=== PATIENT | female | born 1935 | race Caucasian/White ===

== ENCOUNTER 2022-07-08 23:43 | Outpatient (CLI) | payer OTHER, SELFPAY | END 2022-07-08 23:44 | disposition home or self-care (01) | LOC: AMB 07-09 11:30 | PROVIDERS: Visit Provider Family Medicine | DX: R07.89 Other chest pain (principal); R06.09 Other forms of dyspnea | CPT/HCPCS: A0425; A0427 ==

== ENCOUNTER 2022-07-09 00:18 | Emergency (ER) | payer MEDICARE, SELFPAY ==
[2022-07-09] VITALS (17 sets, daily range): BP systolic 108–156; BP diastolic 53–96; PULSE 70–89; RESP 18–20; TEMP 36.4; O2SAT 87–98; BMI 31.2
--- NOTE | 2022-07-09 00:21 | CRLHL7_ITS ---
For Patients: As a result of the Century Cures Act, medical imaging exams and procedure reports are released immediately into your electronic medical record. You may view this report before your referring provider. If you have questions, please contact your health care provider. INDICATION: Shortness of breath. TECHNIQUE: Chest 1 view. COMPARISON: 07/06/2015. FINDINGS: Cardiovascular and mediastinum: Heart size and vasculature are normal in caliber and appearance. Left dual-chamber cardiac pacer. Lungs and pleural spaces: Lungs are clear. No sign of infiltrate or mass. No sign of pleural effusion. No pneumothorax. Bones and soft tissues: Left shoulder prosthesis. IMPRESSION: No acute cardiopulmonary abnormality. Dictated by Sinan Suresh MD @ 07/09/2022 1:41:47 AM (Electronically Signed)
--- NOTE | 2022-07-09 00:35 | ED_ITS ---
HPI - Chest Pain General Time Seen by Provider: 00:35 Date Seen: 07/09/22 Chief Complaint: Chest Pain Stated Complaint: Chest Pain Time Seen by Provider: 07/09/22 00:19 Source: patient Mode of arrival: EMS Limitations: no limitations History of Present Illness HPI narrative: Patient is an 86-year-old female presents here for evaluation of chest pain. This started approximately 10:00 p.m. tonight, is been ongoing for 2 hours, she describes in her anterior chest region with some radiation to her neck. She tells me it is her reflux. EMS gave her some aspirin nitroglycerin with no change in her pain pattern. She did not take anything at home. I find her in the room, with her eyes closed and her sleeping, she tells me she was not sleeping. No history of coughing, fevers chills, she ate normally today. The pain does not radiate where describes her pain currently is 10/10. Although she seems fairly comfortable. Past history of aortic enlargement, pacemaker AICD, history of ventricular tachycardia, history of anxiety, history of hypertension, history hyperparathyroidism, history of intracranial meningioma, history of tricuspid valve insufficiency, history of mitral valve insufficiency, history of spinal stenosis, history of distal neuropathy, history of mixed incontinence, history of hyperlipidemia, history of osteoporosis, History of appendectomy, cholecystectomy, femur fracture with internal fixation, cataract extraction, tubal ligation, MD complaint: chest pain and chest discomfort Onset (ago): hour(s) (2) Timing of current episode: constant Prior episodes: Yes Onset: during rest Pain location: substernal Pain radiation: neck Severity: severe Quality: burning Relieving factors: nothing Exacerbating factors: nothing Treatment prior to arrival: aspirin and nitroglycerin Risk Factors Coronary artery disease risk factors: smoking history and hypertension Thoracic aortic dissection risk factors: history of thoracic aortic aneurysm Related Data On Oral Contraceptives: No Home Medications Medication Instructions Recorded Confirmed famotidine 40 mg tablet 40 mg PO Q12H 07/09/22 07/09/22 furosemide 40 mg tablet 40 mg PO Q12H 07/09/22 07/09/22 gabapentin 300 mg capsule 300 mg PO Q12H 07/09/22 07/09/22 glipizide 2.5 mg tablet, extended 2.5 mg PO DAILY 07/09/22 07/09/22 release 24 hr losartan 50 mg tablet 50 mg PO DAILY 07/09/22 07/09/22 omeprazole 20 mg capsule,delayed 20 mg PO .Q12 07/09/22 07/09/22 release spironolactone 25 mg tablet 25 mg PO DAILY 07/09/22 07/09/22 Previous Rx's Medication Instructions Recorded omeprazole 20 mg capsule,delayed 20 mg PO BID #60 caps 07/09/22 release omeprazole magnesium 20 mg 20 mg PO BID #60 caps 07/09/22 capsule,delayed release (Acid Bindery Machine Setter/Set Up Operator (omeprazole)) Allergies Allergy/AdvReac Type Severity Reaction Status Date / Time atorvastatin Allergy Intermediate myalgia Verified 07/09/22 03:02 calcitonin Allergy Intermediate nose Verified 07/09/22 03:02 irritation estrogens, conjugated Allergy Intermediate itching Verified 07/09/22 03:02 hydralazine Allergy Intermediate dizziness Verified 07/09/22 03:02 lisinopril Allergy Intermediate cough Verified 07/09/22 03:02 mirtazapine Allergy Intermediate sedation Verified 07/09/22 03:02 pantoprazole Allergy Intermediate diarrhea Verified 07/09/22 03:02 simvastatin Allergy Intermediate myalgia Verified 07/09/22 03:02 tramadol Allergy Intermediate dizziness Verified 07/09/22 03:02 codeine Allergy Mild shaking Verified 07/09/22 03:02 metformin AdvReac Mild nausea Verified 07/09/22 03:02 Review of Systems Status of ROS Reports: 10 or more systems reviewed and unremarkable except as noted in History and below [facility] Medical History (Updated 07/09/22 @ 07:35 by Orville Hodge MD) Anemia Anxiety Aortic valve stenosis Ascending aorta dilatation Bilateral dry eyes Cardiac defibrillator in situ Carotid artery bruit Chronic low back pain Colon, diverticulosis Diabetes mellitus with nephropathy GERD (gastroesophageal reflux disease) Heart murmur Hiatal hernia Humerus shaft fracture Hyperlipidemia Hyperparathyroidism Hypertension Intracranial meningioma Lumbar degenerative disc disease Lumbar facet arthropathy Mitral valve insufficiency Mixed incontinence urge and stress Osteoporosis Primary osteoarthritis, left shoulder Rib fracture Sensorineural hearing loss of both ears Small vessel disease Spinal stenosis, lumbar region, without neurogenic claudication Tricuspid valve insufficiency Type 2 diabetes mellitus Ventricular tachycardia Vitamin A deficiency Surgical History (Updated 07/09/22 @ 03:23 by Marvin Peña RN) History of aortic valve replacement History of appendectomy History of cardiac defibrillator placement History of carpal tunnel release History of cataract surgery History of cholecystectomy History of tubal ligation S/P aortic valve replacement with bioprosthetic valve S/p reverse total shoulder arthroplasty Social History Smoking Status: Former smoker How often do you have a drink containing alcohol: never How often do you have six or more drinks on one occasion: Never AUDIT-C Alcohol total score: 0 Non-prescribed substance use: denies use Exam Narrative Exam Narrative: I find her sleeping in the room, with some audible wheezing. She wakes up, forming Pupils are equal round reactive to light, there is no scleral icterus, TMs are normal oropharynx normal, JVP is slightly elevated to 4 cm, with a positive HJR, no lymphadenopathy in her neck, her cranial nerves 3-12 are otherwise normal, her oropharynx is normal, neck is supple full range of motion, Chest shows some crackles in the bases bilaterally, with occasional wheezes, no signs or spiral oriana distress, no palpable tenderness over her chest, heart sounds no clicks murmurs or gallops, Her abdomen is soft and obese there is no guarding no by splenomegaly, scars from previous surgery are noted. Bowel sounds are normal. Extremities show mild 1 to 2+ pitting edema bilaterally, she moves her upper lower extremities normal, there is some venous stasis changes over lower extremities, neurologically she moves her extremities normally, proximal and distal muscle strength is normal, and her proprioception is normal. Const Vital Signs, click to edit/add: Vital Signs - 24 hr 07/09/22 00:26 07/09/22 00:42 07/09/22 01:02 Temperature 97.6 F Pulse Rate 83 85 Pulse Rate [Right Pulse Oximeter] 89 Respiratory Rate 20 Blood Pressure 147/69 H 140/59 H Blood Pressure [Right Upper Arm] 117/92 H Pulse Oximetry 93 92 87 L Oxygen Delivery Method Room Air Nasal Cannula Oxygen Flow Rate 2 07/09/22 01:22 07/09/22 01:42 07/09/22 02:22 Temperature Pulse Rate 81 80 Pulse Rate [Right Pulse Oximeter] Respiratory Rate Blood Pressure 141/60 H 140/65 H 146/62 H Blood Pressure [Right Upper Arm] Pulse Oximetry 95 95 Oxygen Delivery Method Nasal Cannula Nasal Cannula Nasal Cannula Oxygen Flow Rate 2 2 2 07/09/22 02:42 07/09/22 03:01 07/09/22 03:02 Temperature Pulse Rate 77 80 Pulse Rate [Right Pulse Oximeter] Respiratory Rate Blood Pressure 149/73 H 135/64 Blood Pressure [Right Upper Arm] Pulse Oximetry 97 95 96 Oxygen Delivery Method Nasal Cannula Nasal Cannula Oxygen Flow Rate 2 2 07/09/22 03:22 07/09/22 03:42 07/09/22 04:02 Temperature Pulse Rate 75 72 74 Pulse Rate [Right Pulse Oximeter] Respiratory Rate Blood Pressure 134/62 120/59 L 114/55 L Blood Pressure [Right Upper Arm] Pulse Oximetry 96 95 96 Oxygen Delivery Method Oxygen Flow Rate 07/09/22 04:22 07/09/22 04:42 07/09/22 05:02 Temperature Pulse Rate 70 80 72 Pulse Rate [Right Pulse Oximeter] Respiratory Rate Blood Pressure 109/53 L 108/96 H 120/54 L Blood Pressure [Right Upper Arm] Pulse Oximetry 96 98 96 Oxygen Delivery Method Oxygen Flow Rate 07/09/22 06:02 Temperature Pulse Rate 80 Pulse Rate [Right Pulse Oximeter] Respiratory Rate Blood Pressure 122/64 Blood Pressure [Right Upper Arm] Pulse Oximetry 95 Oxygen Delivery Method Nasal Cannula Oxygen Flow Rate 1 Documenting provider has reviewed patient's vital signs: yes Common normals: no apparent distress, average body habitus, oriented x3, no limitations, alert and well nourished Neuro Common normals: oriented x3 Sensorium/orientation: alert Course Course Hospital Course: Troponins are negative, D-dimer was age adjusted normal also. His x-ray showed no acute findings, given the history of the aortic dilatation I did do a chest abdomen pelvis CT, for aortic dissection, this was negative, no evidence of pulmonary embolism seen also. Her pain has improved while she has been here, with a combination of a GI cocktail morphine, and Protonix. Given her past history, I think it is important that we at least get 3 troponins on her. I will get another troponin ordered for 7:00 a.m. this morning, her repeat EKG showed no acute findings also. Reevaluation(s) Reevaluation #1: Third troponin was negative, her EKG shows no acute changes, with stability from previous EKGs, rate is 82, she does sound a little bit cracked clear bronchial, I wonder if her reflux is kicking up again, she does have a history of this. She is already on for Pepcid and omeprazole, decreasing her omeprazole to 40 mg a day would be reasonable, she tells me she just underwent some heart tests down in [place], with the [facility], I do not have access to these, would like her to follow up with her primary care physician as she does have a history of heart issues. She was agreeable to this. She tells me her pain is markedly improved but still has a little bit of discomfort, overall with her troponins being normal, her CT scan showing no evidence of issues. I think it be reasonable let her go home. Time: 07:36 Vital Signs Vital signs: Initial Vital Signs Temperature 97.6 F 07/09/22 00:26 Temperature Source Temporal Artery Scan 07/09/22 00:26 Pulse Rate 89 07/09/22 00:26 Respiratory Rate 20 07/09/22 00:26 Respiratory Effort Spontaneous 07/09/22 00:26 Respiratory Depth Normal 07/09/22 00:26 Respiratory Pattern 07/09/22 00:26 Blood Pressure 117/92 H 07/09/22 00:26 Blood Pressure Mean 100 07/09/22 00:26 Blood Pressure Position Supine 07/09/22 00:26 Pulse Oximetry 93 07/09/22 00:26 Oxygen Delivery Method 07/09/22 00:26 Vital Signs Temperature 97.6 F 07/09/22 00:26 Pulse Rate 89 07/09/22 00:26 Respiratory Rate 20 07/09/22 00:26 Blood Pressure 117/92 H 07/09/22 00:26 Pulse Oximetry 93 07/09/22 00:26 Oxygen Delivery Method 07/09/22 00:26 Temperature 97.6 F 07/09/22 00:26 Pulse Rate 80 07/09/22 06:02 Respiratory Rate 20 07/09/22 00:26 Blood Pressure 122/64 07/09/22 06:02 Pulse Oximetry 95 07/09/22 06:02 Oxygen Delivery Method 07/09/22 06:02 Oxygen Flow Rate 1 07/09/22 06:02 MDM - Chest Pain MDM Narrative Medical decision making narrative: During the evaluation of this patient I considered multiple differential diagnosis is. The life-threatening differential diagnosis include coronary disease/MA, pulmonary embolism, pneumothorax, pneumonia, and aortic dissection. Other differential diagnosis included but were not limited to pericarditis, myocarditis, chest wall pain, GERD, esophageal rupture, rib fracture contusion, pleurisy, as well as other etiologies. Medical Records Data Attestation: I reviewed the patient's medical records. Lab Data Attestation: I reviewed the patient's lab results. Labs: Lab Results 07/09/22 07/09/22 07/09/22 Range/Units 00:30 00:33 00:33 WBC 7.12 (4.50-11.00) K/uL RBC 4.41 (4.00-5.20) m/uL Hgb 13.1 (12.0-16.0) gm/dL Hct 40.3 (33.0-51.0) % MCV 91 (80-100) fL MCH 30 (26-34) pg MCHC 33 (32-36) gm/dL RDW Coeff of Melissa 13.3 (11.5-15.5) % Plt Count 225 (140-440) K/uL Neut % (Auto) 74.6 H (42.0-72.0) % Lymph % (Auto) 15.6 L (20-44) % [place] % (Auto) 7.4 (0.0-11.0) % Eos % (Auto) 1.3 (0.0-7.0) % Baso % (Auto) 0.3 (0.0-3.0) % Neut # (Auto) 5.30 (1.7-7.0) K/uL Lymph # (Auto) 1.10 (0.90-2.90) K/uL [place] # (Auto) 0.50 (0.00-0.90) K/UL Eos # (Auto) 0.09 (0.00-0.50) K/uL Baso # (Auto) 0.02 (0.00-0.30) K/uL Abs Immat Gran (auto) 0.06 (0.00-0.30) K/uL INR 0.92 (0.91-1.10) APTT 29 (23-33) Seconds D-Dimer Quant (PE/DVT) 0.55 H (0.00-0.50) ug/ml Sodium (135-149) mmol/L Potassium (3.6-5.1) mmol/L Chloride (96-114) mmol/L Carbon Dioxide (20-32) mmol/L BUN (7-30) mg/dL Creatinine (0.5-1.5) mg/dL Estimated Creat Clear Estimated GFR ml/min Glucose (60-115) mg/dL Calcium (8.4-10.6) mg/dL NT-Pro-B Natriuret Pep (0-450) PG/mL SARS-CoV-2 (PCR) Negative SARS-CoV-2 (Negative) Influenza Type A (PCR) Negative PCR FLU A (Negative) Influenza Type B (PCR) Negative PCR FLU B (Negative) RSV (PCR) Negative PCR RSV (Negative) POC Troponin I (0.01-0.04) ng/ml 07/09/22 07/09/22 07/09/22 Range/Units 00:33 00:35 02:40 WBC (4.50-11.00) K/uL RBC (4.00-5.20) m/uL Hgb (12.0-16.0) gm/dL Hct (33.0-51.0) % MCV (80-100) fL MCH (26-34) pg MCHC (32-36) gm/dL RDW Coeff of Melissa (11.5-15.5) % Plt Count (140-440) K/uL Neut % (Auto) (42.0-72.0) % Lymph % (Auto) (20-44) % [place] % (Auto) (0.0-11.0) % Eos % (Auto) (0.0-7.0) % Baso % (Auto) (0.0-3.0) % Neut # (Auto) (1.7-7.0) K/uL Lymph # (Auto) (0.90-2.90) K/uL [place] # (Auto) (0.00-0.90) K/UL Eos # (Auto) (0.00-0.50) K/uL Baso # (Auto) (0.00-0.30) K/uL Abs Immat Gran (auto) (0.00-0.30) K/uL INR (0.91-1.10) APTT (23-33) Seconds D-Dimer Quant (PE/DVT) (0.00-0.50) ug/ml Sodium 136 (135-149) mmol/L Potassium 3.5 L (3.6-5.1) mmol/L Chloride 97 (96-114) mmol/L Carbon Dioxide 27 (20-32) mmol/L BUN 21 (7-30) mg/dL Creatinine 0.6 (0.5-1.5) mg/dL Estimated Creat Clear 30.47 Estimated GFR 87 ml/min Glucose 181 H (60-115) mg/dL Calcium 8.6 (8.4-10.6) mg/dL NT-Pro-B Natriuret Pep 205 (0-450) PG/mL SARS-CoV-2 (PCR) (Negative) Influenza Type A (PCR) (Negative) Influenza Type B (PCR) (Negative) RSV (PCR) (Negative) POC Troponin I 0.02 0.02 (0.01-0.04) ng/ml 07/09/22 Range/Units 06:52 WBC (4.50-11.00) K/uL RBC (4.00-5.20) m/uL Hgb (12.0-16.0) gm/dL Hct (33.0-51.0) % MCV (80-100) fL MCH (26-34) pg MCHC (32-36) gm/dL RDW Coeff of Melissa (11.5-15.5) % Plt Count (140-440) K/uL Neut % (Auto) (42.0-72.0) % Lymph % (Auto) (20-44) % [place] % (Auto) (0.0-11.0) % Eos % (Auto) (0.0-7.0) % Baso % (Auto) (0.0-3.0) % Neut # (Auto) (1.7-7.0) K/uL Lymph # (Auto) (0.90-2.90) K/uL [place] # (Auto) (0.00-0.90) K/UL Eos # (Auto) (0.00-0.50) K/uL Baso # (Auto) (0.00-0.30) K/uL Abs Immat Gran (auto) (0.00-0.30) K/uL INR (0.91-1.10) APTT (23-33) Seconds D-Dimer Quant (PE/DVT) (0.00-0.50) ug/ml Sodium (135-149) mmol/L Potassium (3.6-5.1) mmol/L Chloride (96-114) mmol/L Carbon Dioxide (20-32) mmol/L BUN (7-30) mg/dL Creatinine (0.5-1.5) mg/dL Estimated Creat Clear Estimated GFR ml/min Glucose (60-115) mg/dL Calcium (8.4-10.6) mg/dL NT-Pro-B Natriuret Pep (0-450) PG/mL SARS-CoV-2 (PCR) (Negative) Influenza Type A (PCR) (Negative) Influenza Type B (PCR) (Negative) RSV (PCR) (Negative) POC Troponin I 0.00 L (0.01-0.04) ng/ml Imaging Data CT scan - chest: My impression: No evidence of dissection, Radiologist's impression: atient: [facility] Facility:?[facility] Patient ID:?[id number] Site Patient ID:?[id number]. Site :?[id number] Study:?CT Chest/Abd/Pelvis with 95cc [id number] Aortic Diss-07/09/2022 2:29:58 AM Ordering Physician:Randal Jacinto Final Report: INDICATION: Chest and abdominal pain. Possible aortic dissection. COMPARISON: CT of the abdomen and pelvis with contrast from 05/17/2015 TECHNIQUE: Initial examination is a spiral CT of the chest obtained without contrast to produce 3 mill[address] sections[address] angiography of the chest, abdomen, and pelvis was performed with the uneventful intravenous administration of 95 cc of Isovue 370 while 1.5 mm thick axial sections were obtained from above the lungs through the pubic symphysis. Please note that all CT scans at this facility use dose modulation, iterative reconstruction, and/or weight-based dosing when appropriate to reduce radiation dose to as low as reasonably achievable. FINDINGS: : The thoracic aorta is normal in caliber with no sign of dilatation or dissection. There is no sign of periaortic hematoma. In the chest, there is a satisfactory enhancement of the pulmonary arteries with no sign of pulmonary embolism. There is moderately increased AP chest diameter consistent with moderate hyperinflation from COPD. There is stable mild linear scarring in the posterior lung bases. There is no sign of mediastinal or hilar mass or adenopathy. There is no sign of supraclavicular or axillary mass or adenopathy. A TAVR is present. There is heavy calcification of the mitral valve annulus. Again seen is a left sided defibrillator with leads entering the left subclavian vein and terminating in the right atrium and right ventricle. There is mild left main and LAD coronary calcification. The heart is normal in size. There is age appropriate appearance of the ascending great vessels. The abdominal aorta is normal in caliber with no sign of aneurysmal dilatation or dissection. The celiac axis, SMA, solitary bilateral renal arteries, and JR are widely patent. There is no sign of periaortic hematoma. In the abdomen, the liver, spleen, and adrenals are normal in appearance. The pancreas is prominently atrophic. The kidneys are normal in appearance. The gallbladder is absent, consistent with cholecystectomy. There is stable moderate intrahepatic and extrahepatic biliary ductal dilatation with the common bile duct measuring up to 12 millimeters in caliber extending through the pancreatic head, consistent with post cholecystectomy status. There is no sign of retroperitoneal mass or adenopathy. Incidental note is again made of a moderate-sized diverticulum projecting superiorly from the 3rd portion of the duodenum. The stomach, the rest of the loops of small bowel, and right colon in the abdomen are normal in appearance. There is worsening of diverticulosis of the left colon extending from the splenic flexure through the descending colon, now severe, with no sign of d iverticulitis. In the pelvis, the appendix is nonvisualized, but there is no sign of an inflammatory process in the area of the appendix. There is stable severe sigmoid diverticulosis without evidence of diverticulitis. The loops of small bowel and rectum in the pelvis are otherwise normal in appearance. The uterus is atrophic and is otherwise normal in appearance. The adnexal regions are normal in appearance. The urinary bladder is normal in appearance. There is no sign of pelvic or inguinal mass or adenopathy. There is no sign of free fluid or free air in the abdomen or pelvis. Again seen is moderate scoliosis of the upper lumbar spine convex towards the left. There is stable appearance of the mild L1 and T11 compression fractures. Again seen are changes of ORIF for a right hip fracture with a femoral neck nail, interfragmentary screw, and lateral metallic sideplate. There are new findings of ORIF of an intertrochanteric fracture of the left hip with a new left femoral neck nail and femoral intramedullary marychuy. IMPRESSION: No sign of vascular abnormality to explain the patient`s chest or abdominal pain. Normal CT angiogram of the thoracic and abdominal aorta. CT of the chest shows continued moderate hyperinflation consistent with COPD. CT of the abdomen shows stable moderate intrahepatic and extrahepatic biliary ductal dilatation consistent with patient age and post cholecystectomy status. Worsening of left colonic diverticulosis, now prominent. CT of the pelvis shows stable severe sigmoid diverticulosis with no sign of diverticulitis. Please note that all CT scans at this facility use dose modulation, iterative reconstruction, and/or weight-based dosing when appropriate to reduce radiation dose to as low as reasonably achievable. Dictated by Naveen Hoffmann MD @ 07/09/2022 3:16:24 AM ----- ADDENDUM ----- The impression should include the following sentence: No sign of pulmonary embolism. Dictated by Naveen Hoffmann MD @ Jul 09 2022 3:18AM (Electronic Signature) ECG Data Attestation: I personally reviewed and interpreted this ECG as follows: ECG interpretation date: 07/09/22 ECG interpretation time: 00:42 Prior ECG tracings: available for review Interpretation: EKG shows sinus rhythm with sinus arrhythmia, ventricular rate is 85, QRS is normal, QTC is normal, with a normal WI interval. When I compare this to old EKG from 2018 there is no appreciable change, repeat EKG done at 3:11 a.m. shows normal sinus rhythm, no acute ST wave changes, no really change from previous EKG, no acute Discharge Plan Discharge Clinical Impression: Chest pain, Reflux esophagitis Patient Disposition: Home w/ Parent or Adult Condition: Improved Instructions: Chest Pain (DC), GERD (Gastroesophageal Reflux Disease) (DC), Noncardiac Chest Pain (ED), Esophagitis (ED) Additional Instructions: Home rest we will set you up for an outpatient Lexiscan. I would suggest we increase her omeprazole to 40 mg a day. I suspect that this is reflux, as all your cardiiac tests were negative. I would suggest he follow up with her primary care physician, as I understand that you have recently had heart tests, I do not have access to these as these are in the [place] system. Prescriptions: New omeprazole 20 mg capsule,delayed release(DR/EC) 20 mg PO BID Qty: 60 2RF Rx Instructions: Patient already takes. This is an increase omeprazole magnesium [Acid Bindery Machine Setter/Set Up Operator (omeprazole)] 20 mg capsule,delayed release(DR/EC) 20 mg PO BID Qty: 60 2RF No Action famotidine 40 mg tablet 40 mg PO Q12H Label Comments: TAKE 1 TABLET BY MOUTH TWICE A DAY furosemide 40 mg tablet 40 mg PO Q12H Label Comments: TAKE 1.5 TABLETS (60MG) BY MOUTH 2 TIMES A DAY. gabapentin 300 mg capsule 300 mg PO Q12H Label Comments: TAKE 1 CAPSULE (300 MG TOTAL) BY MOUTH 2 TIMES A DAY. glipizide 2.5 mg tablet extended release 24hr 2.5 mg PO DAILY Label Comments: TAKE 1 TABLET BY MOUTH EVERY DAY losartan 50 mg tablet 50 mg PO DAILY Label Comments: TAKE 1 TABLET BY MOUTH EVERY DAY omeprazole 20 mg capsule,delayed release(DR/EC) 20 mg PO .Q12 Label Comments: TAKE 1 CAPSULE BY MOUTH 2 TIMES A DAY BEFORE BREAKFAST AND DINNER. spironolactone 25 mg tablet 25 mg PO DAILY Label Comments: TAKE 1 TABLET BY MOUTH EVERY DAY WITH BREAKFAST Follow Up/Referrals: Provider,Not a Local [Primary Care Provider] - Ken Cabrera MD [Referring] - Stand Alone Forms: [employer] Info Instructions
[2022-07-09 00:43] LABS: Basophils Absolute Auto 0.02 K/uL (0.00-0.30); Basophils Percent Auto 0.3 % (0.0-3.0); Eosinophils Absolute Auto 0.09 K/uL (0.00-0.50); Eosinophils Percent Auto 1.3 % (0.0-7.0); Hematocrit 40.3 % (33.0-51.0); Hemoglobin* 13.1 gm/dL (12.0-16.0); Immature Granulocytes Abs Auto 0.06 K/uL (0.00-0.30); Lymphocytes Percent Auto 15.6 % (20-44); Mean Corpuscular HGB Conc 33 gm/dL (32-36); Mean Corpuscular Hemoglobin 30 pg (26-34); Mean Corpuscular Volume 91 fL (80-100); Monocytes Percent Auto 7.4 % (0.0-11.0); Neutrophils Percent Auto 74.6 % (42.0-72.0); Platelet Count* 225 K/uL (140-440); RDW Coefficient of Variation % 13.3 % (11.5-15.5); Red Blood Count 4.41 m/uL (4.00-5.20); White Blood Count* 7.12 K/uL (4.50-11.00)
[2022-07-09 00:47] LABS: Slide Review Reflex No
[2022-07-09 00:56] LABS: Chloride* 97 mmol/L (96-114); Potassium* 3.5 mmol/L (3.6-5.1); Sodium* 136 mmol/L (135-149)
[2022-07-09 00:58] LABS: INR 0.92 (0.91-1.10); Prothrombin Time 12.8 Seconds
[2022-07-09 00:59] LABS: Carbon Dioxide* 27 mmol/L (20-32); Creatinine* 0.6 mg/dL (0.5-1.5); Est. Creatinine Clearance* 30.47; Estimated Glomerular Filt Rate 87 ml/min; Partial Thromboplastin Time* 29 Seconds (23-33)
[2022-07-09 01:00] LABS: Blood Urea Nitrogen* 21 mg/dL (7-30); Calcium* 8.6 mg/dL (8.4-10.6); Glucose* 181 mg/dL (60-115)
[2022-07-09 01:01] LABS: D Dimer Quantitative* 0.55 ug/ml (0.00-0.50)
[2022-07-09 01:08] LABS: NT Pro B Type NatriureticPept* 205 PG/mL (0-450)
[2022-07-09] MEDS: IPRAT-ALBUT 0.5-2.5 MG/3 ML NEB 1 NEB IH (01:10)
[2022-07-09] MEDS: GI COCKTAIL (VISC LIDO/ANTACID) 30 ML PO (01:10)
[2022-07-09 01:20] LABS: PCR FLU A Negative PCR FLU A (Negative); PCR FLU B Negative PCR FLU B (Negative); PCR RSV Negative PCR RSV (Negative)
[2022-07-09 01:24] LABS: Troponin, Point-of-Care* 0.02 ng/ml (0.01-0.04)
--- NOTE | 2022-07-09 01:25 | ED.NURSE ---
pt denies relief from gi cocktail- mD orozco updated.
[2022-07-09] MEDS: MORPHINE 2 MG/ML inj IVP (01:29)
--- NOTE | 2022-07-09 01:32 | CRLHL7_ITS ---
For Patients: As a result of the Century Cures Act, medical imaging exams and procedure reports are released immediately into your electronic medical record. You may view this report before your referring provider. If you have questions, please contact your health care provider. This noncontrast CT of the chest is interpreted as part of the accompanying CT angiogram of the chest, abdomen, and pelvis. Please note that all CT scans at this facility use dose modulation, iterative reconstruction, and/or weight-based dosing when appropriate to reduce radiation dose to as low as reasonably achievable. Dictated by Naveen Hoffmann MD @ 07/09/2022 3:17:26 AM (Electronically Signed)
--- NOTE | 2022-07-09 01:50 | ED.NURSE ---
pt denies any relief from GI cocktail - MD updated.
[2022-07-09 02:01] LABS: SARS PCR* Negative SARS-CoV-2 (Negative)
[2022-07-09] MEDS: 0.9 % SODIUM CHLORIDE 500 ML 500 ML IV (02:10)
--- NOTE | 2022-07-09 02:15 | ED.NURSE ---
pt states some relief from morphine, pt states pain mostly with coughing, MD updated.
[2022-07-09] MEDS: PANTOPRAZOLE SODIUM 40 MG INJ IVP (02:34)
[2022-07-09 02:55] LABS: Troponin, Point-of-Care* 0.02 ng/ml (0.01-0.04)
--- NOTE | 2022-07-09 03:08 | ED.NURSE ---
phone update to sawyer Marrufo dtr/codey [phone]
--- NOTE | 2022-07-09 03:58 | ED.NURSE ---
patient states pain feels better unless coughing, pt denies any need for additional prn morphine at this time, pt agrees to use call light if pain changes.
[2022-07-09] MEDS: MORPHINE 4 MG/ML INJ 2 MG IVP (05:59)
--- NOTE | 2022-07-09 07:44 | PC.NURSE ---
spoke to via phone, he will be coming shortly and bringing her clothes
== END 2022-07-09 08:45 | disposition home or self-care (01) ==
PROVIDERS: Emergency Provider Family Medicine
DX: K21.00 Gastro-esophageal reflux disease with esophagitis, without bleeding (principal); Z13.0 Encounter for screening for diseases of the blood and blood-forming organs and certain disorders involving the immune mechanism
CPT/HCPCS: 36415; 71045; 71270; 74177; 80048; 83880; 84484; 85025; 85379; 85610; 85730; 87502; 87634; 87635; 93005; 94640; 96374; 96375; 96376; 99285; A9270; C9113; J2270; J7120; Q9967

== ENCOUNTER 2023-02-21 03:22 | Outpatient (CLI) | payer MEDICARE, SELFPAY | END 2023-02-21 03:23 | disposition home or self-care (01) | LOC: AMB 14:41 | PROVIDERS: Visit Provider Family Medicine | DX: R07.89 Other chest pain (principal) | CPT/HCPCS: A0425; A0427 ==

== ENCOUNTER 2023-02-21 03:55 | Emergency (ER) | payer MEDICARE, SELFPAY ==
[2023-02-21] VITALS (8 sets, daily range): BP systolic 141–147; BP diastolic 60–63; PULSE 60–66; RESP 18; TEMP 36.3; O2SAT 87–95
--- NOTE | 2023-02-21 04:11 | CRLHL7_ITS ---
For Patients: As a result of the Century Cures Act, medical imaging exams and procedure reports are released immediately into your electronic medical record. You may view this report before your referring provider. If you have questions, please contact your health care provider. INDICATION: AMS, FALL, HEAD TRAUMA TECHNIQUE: Head CT without contrast. COMPARISON: [facility] 02/28/2018. FINDINGS: CSF spaces: Similar moderate cerebral parenchymal volume loss most notably within the frontal lobes. Brain parenchyma and extra-axial spaces: There are moderate nonspecific low attenuation white matter changes consistent with chronic microvascular disease. No sign of intracranial hemorrhage, or midline shift. Skull base and calvarium: The visualized paranasal sinuses and mastoid air cells demonstrate no acute or significant findings. The visualized orbits are grossly unremarkable. Small right frontal scalp contusion/hematoma. No skull fractures. Stable 1 cm calcified lesion along the posterior performed plate which can represent residual osteoma or meningioma. IMPRESSION: Small right frontal scalp contusion/hematoma. No evidence of a non-small fracture or intracranial hemorrhage. Similar moderate cerebral parenchymal volume loss most notably within the frontal lobes. Similar moderate chronic microvascular ischemic changes. Please note that all CT scans at this facility use dose modulation, iterative reconstruction, and/or weight-based dosing when appropriate to reduce radiation dose to as low as reasonably achievable. Dictated by Hector Bonds MD @ 02/21/2023 6:00:27 AM (Electronically Signed)
--- NOTE | 2023-02-21 04:11 | CRLHL7_ITS ---
For Patients: As a result of the Century Cures Act, medical imaging exams and procedure reports are released immediately into your electronic medical record. You may view this report before your referring provider. If you have questions, please contact your health care provider. INDICATION: FALL, CHEST AND BACK PAIN TECHNIQUE: CT chest without contrast. COMPARISON: CT DISSECTION 07/09/22 FINDINGS: Lungs and pleura: Mild hyperinflation of the lungs with mild pulmonary emphysema. No suspicious nodules or infiltrates. Linear bibasilar atelectasis or scarring. No pleural effusions, pleural thickening, or pneumothorax. Heart and vasculature: Heart size is normal. Thoracic aorta and pulmonary artery are normal in caliber.A TAVR is present. There are calcifications of the mitral valve annulus. Again seen is a left sided defibrillator with leads in unchanged position. Thoracic aorta and coronary artery calcifications Lymph nodes/mediastinum: No mediastinal adenopathy. Chest wall: No masses. Upper abdomen: No significant findings. Bones: Left reverse shoulder arthroplasty. Mild anterior wedging compression deformity at T6 which is age indeterminate but new when compared to prior exam from July 09, 2022. Degenerative changes of the right shoulder. IMPRESSION: Mild anterior wedging compression deformity at T6 which is age indeterminate but new when compared to prior exam from July 09, 2022. Mild pulmonary emphysema. Please note that all CT scans at this facility use dose modulation, iterative reconstruction, and/or weight-based dosing when appropriate to reduce radiation dose to as low as reasonably achievable. Dictated by Hector Bonds MD @ 02/21/2023 6:12:57 AM (Electronically Signed)
[2023-02-21 04:22] LABS: Basophils Absolute Auto 0.01 K/uL (0.00-0.30); Basophils Percent Auto 0.2 % (0.0-3.0); Eosinophils Absolute Auto 0.11 K/uL (0.00-0.50); Eosinophils Percent Auto 1.9 % (0.0-7.0); Hematocrit 39.7 % (33.0-51.0); Hemoglobin* 12.8 gm/dL (12.0-16.0); Immature Granulocytes Abs Auto 0.08 K/uL (0.00-0.30); Immature Granulocytes Pct Auto 1.4 %; Lymphocytes Absolute Auto 1.58 K/uL (0.90-2.90); Lymphocytes Percent Auto 26.9 % (20-44); Mean Corpuscular HGB Conc 32 gm/dL (32-36); Mean Corpuscular Hemoglobin 30 pg (26-34); Mean Corpuscular Volume 92 fL (80-100); Monocytes Percent Auto 6.5 % (0.0-11.0); Neutrophils Absolute Auto 3.72 K/uL (1.7-7.0); Neutrophils Percent Auto 63.1 % (42.0-72.0); Platelet Count* 233 K/uL (140-440); RDW Coefficient of Variation % 13.1 % (11.5-15.5); Red Blood Count 4.33 m/uL (4.00-5.20); White Blood Count* 5.88 K/uL (4.50-11.00)
[2023-02-21] MEDS: ACETAMINOPHEN 500 MG TABLET 1000 MG PO (04:22)
[2023-02-21 04:24] LABS: Slide Review Reflex No
[2023-02-21 04:26] LABS: Troponin, Point-of-Care* 0.01 ng/ml (0.01-0.04)
[2023-02-21 04:33] LABS: Albumin* 3.8 g/dL (3.3-5.0); Chloride* 101 mmol/L (96-114)
[2023-02-21 04:34] LABS: Potassium* 3.3 mmol/L (3.6-5.1); Sodium* 136 mmol/L (135-149)
[2023-02-21 04:36] LABS: Bilirubin Total* 0.6 mg/dL (0.1-1.5); Creatinine* 0.6 mg/dL (0.5-1.5); Estimated Glomerular Filt Rate 87 ml/min
[2023-02-21 04:37] LABS: Alanine Aminotransferase* 19 U/L (4-35); Alkaline Phosphatase* 81 U/L (40-150); Aspartate Amino Transferase* 23 U/L (12-35); Blood Urea Nitrogen* 19 mg/dL (7-30); Calcium* 8.6 mg/dL (8.4-10.6); Carbon Dioxide* 32 mmol/L (20-32); Glucose* 127 mg/dL (60-115); Total Protein* 6.5 g/dL (6.0-8.3)
[2023-02-21 04:39] LABS: C Reactive Protein* 0.7 mg/dL (0.5-1.0)
--- NOTE | 2023-02-21 04:45 | ED.GENADULT ---
HPI - General Adult General Chief complaint: Chest Pain Stated complaint: Cardiac event Time Seen by Provider: 02/21/23 04:04 Source: patient and EMS Mode of arrival: EMS History of Present Illness HPI narrative: 87-year-old female that I have cared for in the past presents by EMS for a fall. She was found on the floor by her . Uncertain what time she fell but suspects that was within an hour of discovery. She has a longstanding history of anxiety, memory issues and can be difficult to care for with many somatic complaints in the past. She is typically a very poor historian. Today, she was reporting chest pain to EMS, they administered nitroglycerin which did not seem to improve her symptoms. She does not believe that she is taking any anticoagulants. She tells me that she was walking tried to hang upper walker and fell backward. When I asked about why she has a goose egg on the front of her head, she tells me that no she fell backward. She does not attempt to give an explanation for the forehead lesion. When I ask where she is having chest pain she points all over her torso and back for several seconds. When I clarify about palpitations, dizziness dyspnea, she initially admits to all of those and when I redirect questions she states she is having none of those. When asked about other injuries, hip pain, back pain, neck pain, shoulder pain, abdominal pain, she denies these. But then I over here her telling the nurse a few minutes later that she ?hurts all over?. She denies fevers, vomiting, recent illness. There were no signs of any acute sickness per the EMS team. Blood sugar was in the 130s on the scene. EMS did not get a clear story from her regarding any acute issues but did elect to treat the chest pain. apparently only described the fall, no recent changes in medications or behavior as far as we can tell. Past medical history notable for diabetes, hypertension. I believe she has some renal insufficiency and GERD as well. She denies any recent surgeries, prior records are reviewed. Socially, she denies any intoxication or recent illness. No pertinent travel. ROS is difficult to find reliable but admits to fall, headache, body pain, chest pain and multiple other symptoms that are not necessarily reproducible on repeat questioning. I did attempt to review all 12 systems. Related Data Home Medications Medication Instructions Recorded Confirmed famotidine 40 mg tablet 40 mg PO Q12H 07/09/22 07/09/22 furosemide 40 mg tablet 40 mg PO Q12H 07/09/22 07/09/22 gabapentin 300 mg capsule 300 mg PO Q12H 07/09/22 07/09/22 glipizide 2.5 mg tablet, extended 2.5 mg PO DAILY 07/09/22 07/09/22 release 24 hr losartan 50 mg tablet 50 mg PO DAILY 07/09/22 07/09/22 omeprazole 20 mg capsule,delayed 20 mg PO .Q12 07/09/22 07/09/22 release spironolactone 25 mg tablet 25 mg PO DAILY 07/09/22 07/09/22 Previous Rx's Medication Instructions Recorded omeprazole 20 mg capsule,delayed 20 mg PO BID #60 caps 07/09/22 release omeprazole magnesium 20 mg 20 mg PO BID #60 caps 07/09/22 capsule,delayed release (Acid Senior [employer] Supervisor (omeprazole)) Allergies Allergy/AdvReac Type Severity Reaction Status Date / Time atorvastatin Allergy Intermediate myalgia Verified 07/09/22 03:02 calcitonin Allergy Intermediate nose Verified 07/09/22 03:02 irritation estrogens, conjugated Allergy Intermediate itching Verified 07/09/22 03:02 hydralazine Allergy Intermediate dizziness Verified 07/09/22 03:02 lisinopril Allergy Intermediate cough Verified 07/09/22 03:02 mirtazapine Allergy Intermediate sedation Verified 07/09/22 03:02 pantoprazole Allergy Intermediate diarrhea Verified 07/09/22 03:02 simvastatin Allergy Intermediate myalgia Verified 07/09/22 03:02 tramadol Allergy Intermediate dizziness Verified 07/09/22 03:02 codeine Allergy Mild shaking Verified 07/09/22 03:02 metformin AdvReac Mild nausea Verified 07/09/22 03:02 [facility] Medical History Anemia ?D64.9 - Anemia, unspecified (ICD-10) Anxiety ?F41.9 - Anxiety disorder, unspecified (ICD-10) Aortic valve stenosis ?I35.0 - Nonrheumatic aortic (valve) stenosis (ICD-10) Ascending aorta dilatation ?I77.810 - Thoracic aortic ectasia (ICD-10) Bilateral dry eyes ?H04.123 - Dry eye syndrome of bilateral lacrimal glands (ICD-10) Cardiac defibrillator in situ ?Z95.810 - Presence of automatic (implantable) cardiac defibrillator (ICD-10) Carotid artery bruit ?R09.89 - Other specified symptoms and signs involving the circulatory and respiratory systems (ICD-10) Chronic low back pain ?M54.50 - Low back pain, unspecified (ICD-10) ?G89.29 - Other chronic pain (ICD-10) Colon, diverticulosis ?K57.30 - Diverticulosis of large intestine without perforation or abscess without bleeding (ICD-10) 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) GERD (gastroesophageal reflux disease) ?K21.9 - Gastro-esophageal reflux disease without esophagitis (ICD-10) Heart murmur ?R01.1 - Cardiac murmur, unspecified (ICD-10) Hiatal hernia ?K44.9 - Diaphragmatic hernia without obstruction or gangrene (ICD-10) Humerus shaft fracture ?S42.309A - Unspecified fracture of shaft of humerus, unspecified arm, initial encounter for closed fracture (ICD-10) Hyperlipidemia ?E78.5 - Hyperlipidemia, unspecified (ICD-10) Hyperparathyroidism ?E21.3 - Hyperparathyroidism, unspecified (ICD-10) Hypertension ?I10 - Essential (primary) hypertension (ICD-10) Intracranial meningioma ?D32.0 - Benign neoplasm of cerebral meninges (ICD-10) Lumbar degenerative disc disease ?M51.36 - Other intervertebral disc degeneration, lumbar region (ICD-10) Lumbar facet arthropathy ?M47.816 - Spondylosis without myelopathy or radiculopathy, lumbar region (ICD-10) Mitral valve insufficiency ?I34.0 - Nonrheumatic mitral (valve) insufficiency (ICD-10) Mixed incontinence urge and stress ?N39.46 - Mixed incontinence (ICD-10) Osteoporosis ?M81.0 - Age-related osteoporosis without current pathological fracture (ICD-10) Primary osteoarthritis, left shoulder ?M19.012 - Primary osteoarthritis, left shoulder (ICD-10) Rib fracture ?S22.39XA - Fracture of one rib, unspecified side, initial encounter for closed fracture (ICD-10) Sensorineural hearing loss of both ears ?H90.3 - Sensorineural hearing loss, bilateral (ICD-10) Small vessel disease ?I73.9 - Peripheral vascular disease, unspecified (ICD-10) Spinal stenosis, lumbar region, without neurogenic claudication ?M48.061 - Spinal stenosis, lumbar region without neurogenic claudication (ICD-10) 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 - Rheumatic tricuspid insufficiency (ICD-10) Type 2 diabetes mellitus ?E11.9 - Type 2 diabetes mellitus without complications (ICD-10) Ventricular tachycardia ?I47.2 - Ventricular tachycardia (ICD-10) Vitamin A deficiency ?E50.9 - Vitamin A deficiency, unspecified (ICD-10) Surgical History History of aortic valve replacement ?Z95.2 - Presence of prosthetic heart valve (ICD-10) History of appendectomy ?Z90.49 - Acquired absence of other specified parts of digestive tract (ICD-10) History of cardiac defibrillator placement ?Z95.810 - Presence of automatic (implantable) cardiac defibrillator (ICD-10) History of carpal tunnel release ?Z98.890 - Other specified postprocedural states (ICD-10) History of cataract surgery ?Z98.49 - Cataract extraction status, unspecified eye (ICD-10) History of cholecystectomy ?Z90.49 - Acquired absence of other specified parts of digestive tract (ICD-10) History of tubal ligation ?Z98.51 - Tubal ligation status (ICD-10) S/P aortic valve replacement with bioprosthetic valve ?Z95.3 - Presence of xenogenic heart valve (ICD-10) S/p reverse total shoulder arthroplasty ?Z96.619 - Presence of unspecified artificial shoulder joint (ICD-10) Social History Smoking Status: Former smoker Do you use any of these nicotine containing products: None How often do you have a drink containing alcohol: never How often do you have six or more drinks on one occasion: Never AUDIT-C Alcohol total score: 0 Non-prescribed substance use: denies use Exam Const: Vital Signs, click to edit/add: Vital Signs - 24 hr 02/21/23 04:10 02/21/23 04:32 02/21/23 04:33 Temperature 97.4 F L Pulse Rate 63 64 Pulse Rate [Left P ulse Oximeter] 66 Respiratory Rate 18 Blood Pressure 146/62 H Blood Pressure [Ri ght Upper Arm] 141/63 H Pulse Oximetry 94 88 90 Oxygen Delivery Me thod Room Air 02/21/23 04:45 02/21/23 05:00 02/21/23 05:02 Temperature Pulse Rate 62 60 60 Pulse Rate [Left P ulse Oximeter] Respiratory Rate Blood Pressure 147/60 H Blood Pressure [Ri ght Upper Arm] Pulse Oximetry 87 L 94 91 Oxygen Delivery Me thod 02/21/23 05:15 02/21/23 05:30 Temperature Pulse Rate 60 63 Pulse Rate [Left P ulse Oximeter] Respiratory Rate Blood Pressure Blood Pressure [Ri ght Upper Arm] Pulse Oximetry 87 L 95 Oxygen Delivery Me thod Documenting provider has reviewed patient's vital signs: yes Common normals: alert Orientation/consciousness: Yes oriented to person Other: Anxious with poor insight. Moderate historian at best. HENMT: Other: Small hematoma on right anterior frontal scalp. No acute bleeding. No facial deformities or other skull deformities. Eye: Common normals: PERRL, EOMs intact bilaterally and conjunctivae normal General eye: normal appearance of both eyes Conjunctiva: conjunctiva(e) normal Pupil: PERRL Neck & C-Spine: Common normals: full ROM and no lymphadenopathy Chest: Common normals: inspection of chest normal Other: Pain to palpation of anterior ribs and sternum, no crepitus or deformity. Resp: Common normals: normal respiratory effort, no use of accessory muscles and clear to auscultation bilaterally Effort & inspection: able to speak in complete sentences Auscultation: clear to auscultation bilaterally Cardio: Common normals: regular rate, regular rhythm, S1 normal heart sound, S2 normal heart sound and no murmurs Rate: regular rate Rhythm: regular rhythm Heart sounds: S1 normal and S2 normal GI: Common normals: Normal to inspection, nondistended, normoactive bowel sounds present, soft to palpation, non-tender and no hepatosplenomegaly Palpation: soft and no hepatosplenomegaly Back & Pelvis: Common normals: thoracic and lumbar spine normal to inspection and no thoracic nor lumbar tenderness Extremity: Common normals: normal capillary refill Other: No tenderness to palpation of shoulders, clavicles, wrists, hips, pelvis, knees, ankles. 2+ edema with mild venous stasis noted to lower extremities Neuro: Sensorium/orientation: alert and oriented to person Cranial nerves: CN normal except as noted Motor exam: strength 5/5 throughout and no movement abnormalities noted Psych: Mood and affect: anxious Insight: limited Judgement: fair Skin: Narrative: Other than bruising on right frontal forehead area, no other lacerations, bruising or signs of skin injury. Course Vital Signs Vital signs: Initial Vital Signs Temperature 97.4 F L 02/21/23 04:10 Temperature Source Temporal Artery Scan 02/21/23 04:10 Pulse Rate 66 02/21/23 04:10 Pulse Rhythm Regular 02/21/23 04:10 Respiratory Rate 18 02/21/23 04:10 Blood Pressure 141/63 H 02/21/23 04:10 Blood Pressure Mean 89 02/21/23 04:10 Blood Pressure Position Semi-Fowlers 02/21/23 04:10 Pulse Oximetry 94 02/21/23 04:10 Oxygen Delivery Method Room Air 02/21/23 04:10 Vital Signs Temperature 97.4 F L 02/21/23 04:10 Pulse Rate 66 02/21/23 04:10 Respiratory Rate 18 02/21/23 04:10 Blood Pressure 141/63 H 02/21/23 04:10 Pulse Oximetry 94 02/21/23 04:10 Oxygen Delivery Method Room Air 02/21/23 04:10 Temperature 97.4 F L 02/21/23 04:10 Pulse Rate 63 02/21/23 05:30 Respiratory Rate 18 02/21/23 04:10 Blood Pressure 147/60 H 02/21/23 05:02 Pulse Oximetry 95 02/21/23 05:30 Oxygen Delivery Method Room Air 02/21/23 04:10 Medical Decision Making MDM Narrative Medical decision making narrative: Suspect mechanical fall, reported history of arrhythmia from records, cannot exclude cardiac or metabolic etiology. Recommend CT scan of the head and also the chest. Pain seems markedly out of proportion to findings. Basic labs, troponin, serial monitoring. She reports allergy to all narcotics so I will try to treat her pain with Tylenol and consider low-dose oxycodone if this is not effective. Awaiting lab results, urinalysis and additional findings. Update: 455. I went back and re-evaluated Brenda after she was calm, the lights were off and no one else was in the room. She has calmed down considerably and is able to give a more reliable story. She reports that she falls frequently which I know from prior visits. She attributes this to her neuropathy and her ?bone disease?. She states that she did not get any warning signs that she was about to fall. There was no dizziness, no racing heart. She thinks her walker may have gotten stuck or she just lost her balance, tipping backward. She does recall that she fell backwards which she did say earlier. When I ask about the hematoma on her forehead, she says that the walker fell forward onto her forehead. This does not quite make sense. When I asked her to quantify the chest pain she points again all over the entire torso and back. When I ask if she has a history of compression fractures or other recent injuries she goes on to tell me that she cracks her bones all the time and the heel for her to do it again. I do not see any evidence that she has had recent rib or compression fractures here in the ED. she is very comfortable appearing is when I initially evaluate, she has been given the Tylenol. I let her know that with her allergy list, I am fairly limited on what I can use to treat her pain. I would like to stick with the Tylenol for now and await studies. She verbalizes understanding and agreement. Update: Notify patient of lab results, CT findings. There is a small T6 compression fracture that is certainly less than half of the vertebral height and would not warrant kyphoplasty or other interventions. She is also not point tender on my repeat exam. She is sleeping comfortably when I wake her to notify her of findings. Therefore, I do not think she will need stronger pain medication. She was able to ambulate to the bathroom without significant difficulty as long as she used the walker. I do not think that there are any other interventions we could be doing to keep her safer at home but she is getting frail. She tells me that she is not interested in other changes in her living environment at this time. Lab Data Lab results reviewed: Yes I reviewed the patient's lab results Lab results narrative: Reassuring Labs: Lab Results 02/21/23 02/21/23 02/21/23 Range/Units 04:11 04:15 05:45 WBC 5.88 (4.50-11.00) K/uL RBC 4.33 (4.00-5.20) m/uL Hgb 12.8 (12.0-16.0) gm/dL Hct 39.7 (33.0-51.0) % MCV 92 (80-100) fL MCH 30 (26-34) pg MCHC 32 (32-36) gm/dL RDW Coeff of Melissa 13.1 (11.5-15.5) % Plt Count 233 (140-440) K/uL Neut % (Auto) 63.1 (42.0-72.0) % Lymph % (Auto) 26.9 (20-44) % Saline % (Auto) 6.5 (0.0-11.0) % Eos % (Auto) 1.9 (0.0-7.0) % Baso % (Auto) 0.2 (0.0-3.0) % Neut # (Auto) 3.72 (1.7-7.0) K/uL Lymph # (Auto) 1.58 (0.90-2.90) K/uL Saline # (Auto) 0.40 (0.00-0.90) K/UL Eos # (Auto) 0.11 (0.00-0.50) K/uL Baso # (Auto) 0.01 (0.00-0.30) K/uL Sodium 136 (135-149) mmol/L Potassium 3.3 L (3.6-5.1) mmol/L Chloride 101 (96-114) mmol/L Carbon Dioxide 32 (20-32) mmol/L BUN 19 (7-30) mg/dL Creatinine 0.6 (0.5-1.5) mg/dL Estimated GFR 87 ml/min Glucose 127 H (60-115) mg/dL Calcium 8.6 (8.4-10.6) mg/dL Total Bilirubin 0.6 (0.1-1.5) mg/dL AST 23 (12-35) U/L ALT 19 (4-35) U/L Alkaline Phosphatase 81 (40-150) U/L Troponin I < 0.01 L (0.01-0.04) ng/mL C-Reactive Protein 0.7 (0.5-1.0) mg/dL NT-Pro-B Natriuret Pep 133 pg/mL Total Protein 6.5 (6.0-8.3) g/dL Albumin 3.8 (3.3-5.0) g/dL Urine Color Yellow (Yellow) Urine Appearance Cloudy A (Clear) Urine pH 5.5 (5.0-8.5) Ur Specific [place] 1.010 (1.000-1.030) Urine Protein Negative (Negative) Urine Glucose (UA) Negative (Negative) Urine Ketones Negative (Negative) Urine Blood Negative (Negative) Urine Nitrite Negative (Negative) Urine Bilirubin Negative (Negative) Urine Urobilinogen 0.2 (0.2-1.0) Ur Leukocyte Esterase 1+ A (Negative) Urine RBC 2-5 A (0-2) Urine WBC 10-25 A (0-5) Ur Squamous Epith Cells Moderate A (None-Few) Urine Bacteria Many A (None) Urine Mucus Moderate A (None) POC Troponin I 0.01 (0.01-0.04) ng/ml Imaging Data CT scan - head: Attestation: I have reviewed the pertinent imaging results. My impression: Lots of vascular calcifications, dementia changes and hematoma on forehead, otherwise normal Radiologist's impression: MPRESSION: Small right frontal scalp contusion/hematoma. No evidence of a non-small fracture or intracranial hemorrhage. Similar moderate cerebral parenchymal volume loss most notably within the frontal lobes. Similar moderate chronic microvascular ischemic changes. CT scan - chest: Attestation: I have reviewed the pertinent imaging results. My impression: No obvious rib fracture. Lots of degenerative changes to the thoracic spine, undetermined acuity Radiologist's impression: IMPRESSION: Mild anterior wedging compression deformity at T6 which is age indeterminate but new when compared to prior exam from July 09, 2022. Mild pulmonary emphysema. ECG Data Attestation: I personally reviewed and interpreted this ECG as follows: Prior ECG tracings: not available for review Interpretation: Normal sinus rhythm, rate 66. No significant ST or T-wave abnormalities. Normal axis. Actually pretty good R-wave progression. No signs of ischemia. Surprisingly great looking EKG for her age. Discharge Plan Discharge Clinical Impression: Closed wedge compression fracture of T6 vertebra, Fall in elderly patient Patient Disposition: Home w/ Parent or Adult Condition: Improved Instructions: Vertebral Compression Fracture (ED) Additional Instructions: As we discussed, the hematoma on your forehead does not need any treatment. This will heal on its own but will take several weeks to shrink in size. It is common to have a mild headache and be more fatigued from this mild head injury. Your symptoms will last several days, up to a week. Make sure that your using your walker whenever you are getting around as this is your best chance at preventing falls. Unfortunately, it will not prevent all falls. It is okay to take Tylenol for pain, 1000 mg 3 times daily. You have a very slight compression fracture at T6. This is in your midback. I do suspect that this was from your fall. It is so small that there are no treatments needed or available but your likely to continue having pain in the back that wraps around to your chest. As above, you may take Tylenol for this. You may also try 400 mg of ibuprofen but no more than twice daily. There are no changes to your medicines otherwise. Activity Level: Activity as Tolerated Discharge Diet: Diabetic Prescriptions: No Action famotidine 40 mg tablet 40 mg PO Q12H Patient Comments: TAKE 1 TABLET BY MOUTH TWICE A DAY furosemide 40 mg tablet 40 mg PO Q12H Patient Comments: TAKE 1.5 TABLETS (60MG) BY MOUTH 2 TIMES A DAY. gabapentin 300 mg capsule 300 mg PO Q12H Patient Comments: TAKE 1 CAPSULE (300 MG TOTAL) BY MOUTH 2 TIMES A DAY. glipizide 2.5 mg tablet extended release 24hr 2.5 mg PO DAILY Patient Comments: TAKE 1 TABLET BY MOUTH EVERY DAY losartan 50 mg tablet 50 mg PO DAILY Patient Comments: TAKE 1 TABLET BY MOUTH EVERY DAY omeprazole 20 mg capsule,delayed release(DR/EC) 20 mg PO .Q12 Patient Comments: TAKE 1 CAPSULE BY MOUTH 2 TIMES A DAY BEFORE BREAKFAST AND DINNER. spironolactone 25 mg tablet 25 mg PO DAILY Patient Comments: TAKE 1 TABLET BY MOUTH EVERY DAY WITH BREAKFAST omeprazole 20 mg capsule,delayed release(DR/EC) 20 mg PO BID Qty: 60 2RF Rx Instructions: Patient already takes. This is an increase omeprazole magnesium [Acid Senior [employer] Supervisor (omeprazole)] 20 mg capsule,delayed release(DR/EC) 20 mg PO BID Qty: 60 2RF Follow Up/Referrals: Provider,Not a Local [Primary Care Provider] - Stand Alone Forms: [employer] Info Instructions
[2023-02-21 04:47] LABS: NT Pro B Type NatriureticPept* 133 pg/mL
[2023-02-21 04:51] LABS: Troponin I* < 0.01 ng/mL (0.01-0.04)
[2023-02-21 05:50] LABS: Appearance Urine Cloudy (Clear); Bilirubin Urine Negative (Negative); Blood Urine Negative (Negative); Color Urine Yellow (Yellow); Glucose Urine Negative (Negative); Ketones Urine Negative (Negative); Leukocyte Esterase Urine 1+ (Negative); Nitrite Urine Negative (Negative); Protein Urine Negative (Negative); Urobilinogen Urine 0.2 (0.2-1.0); pH Urine 5.5 (5.0-8.5)
[2023-02-21 06:01] LABS: Bacteria Urine Many; Mucus Urine Moderate; Squamous Epithelial Cell Urine Moderate (None-Few)
--- NOTE | 2023-02-21 06:51 | ED.NURSE ---
DC instructions given to pt. Pt called for ride home. Pt said he is just waking up and will be here as soon as he can.
--- NOTE | 2023-02-22 12:25 | ED.NURSE ---
was prescribed keflex 500 mg tid for [address] moore. called to [facility] in [place].
== END 2023-02-21 07:35 | disposition home or self-care (01) ==
PROVIDERS: Emergency Provider Family Medicine
DX: S22.050A Wedge compression fracture of T5-T6 vertebra, initial encounter for closed fracture (principal); W19.XXXA Unspecified fall, initial encounter
CPT/HCPCS: 36415; 70450; 71250; 80053; 81003; 81015; 83880; 84484; 85025; 86140; 87086; 87186; 93005; 99283; 99284; A9270

== ENCOUNTER 2023-02-28 09:24 | Emergency (ER) | payer MEDICARE, SELFPAY ==
[2023-02-28 09:33] VITALS: BP 193/75; PULSE 72; RESP 18; TEMP 36.3; O2SAT 97; BMI 30.7
--- NOTE | 2023-02-28 09:57 | ED.GENADULT ---
HPI - General Adult General Chief complaint: Weakness Stated complaint: Lung pain Time Seen by Provider: 02/28/23 09:26 Source: patient and family Mode of arrival: ambulatory Limitations: no limitations History of Present Illness HPI narrative: 87-year-old female well known to me presents for back pain. Patient has a known T6 compression fracture and was evaluated in the ED a week ago. She had initially declined stronger pain medicine because she is ?allergic to all of them?. She has been using Tylenol which does not adequately treat her pain. Pain is worse with significant movement and with deep breaths which is exactly what would be expected. There has been no new falls, no new fevers. She is taking antibiotics for UTI and will complete this within 24 hours. She denies any hypoglycemia. She says that she can no longer manage at home. Family is concerned that she may need fdc placement as she tends to be very active but can no longer do these things for herself. When asked more specifics about being able to get herself to the bathroom, basic ADLs, it sounds as though she can do those things. I have cared for this patient before and she gets very very anxious and overwhelmed easily. She does not seem to remember the details of our conversation a week ago regarding her compression fracture and of course she had been given written instructions outlining all of this as well. Her family does not seem familiar with these instructions. Previous notes are reviewed. No new cardiac, GI, generalized symptoms. As stated, no new falls or injury. Pain is located in the mid back, constant and achy, worse with deep breath and certain movements. Past medical history is notable for chronic neuropathy, GERD, hypertension. Prior hospitalizations reviewed as well. Socially she is a nonsmoker, lives independently. is around 89. She does not currently use any home health services. ROS notable for the musculoskeletal symptoms as above, otherwise denies times 12 systems. Related Data Home Medications Medication Instructions Recorded Confirmed famotidine 40 mg tablet 40 mg PO Q12H 07/09/22 07/09/22 furosemide 40 mg tablet 40 mg PO Q12H 07/09/22 07/09/22 gabapentin 300 mg capsule 300 mg PO Q12H 07/09/22 07/09/22 glipizide 2.5 mg tablet, extended 2.5 mg PO DAILY 07/09/22 07/09/22 release 24 hr losartan 50 mg tablet 50 mg PO DAILY 07/09/22 07/09/22 omeprazole 20 mg capsule,delayed 20 mg PO .Q12 07/09/22 07/09/22 release spironolactone 25 mg tablet 25 mg PO DAILY 07/09/22 07/09/22 Previous Rx's Medication Instructions Recorded omeprazole 20 mg capsule,delayed 20 mg PO BID #60 caps 07/09/22 release omeprazole magnesium 20 mg 20 mg PO BID #60 caps 07/09/22 capsule,delayed release (Acid Automatic Embroidery Machine Tender (omeprazole)) oxycodone 5 mg tablet 2.5 - 5 mg PO Q8H PRN pain #12 tabs 02/28/23 Allergies Allergy/AdvReac Type Severity Reaction Status Date / Time atorvastatin Allergy Intermediate myalgia Verified 02/28/23 09:36 calcitonin Allergy Intermediate nose Verified 02/28/23 09:36 irritation estrogens, conjugated Allergy Intermediate itching Verified 02/28/23 09:36 hydralazine Allergy Intermediate dizziness Verified 02/28/23 09:36 lisinopril Allergy Intermediate cough Verified 02/28/23 09:36 mirtazapine Allergy Intermediate sedation Verified 02/28/23 09:36 pantoprazole Allergy Intermediate diarrhea Verified 02/28/23 09:36 simvastatin Allergy Intermediate myalgia Verified 02/28/23 09:36 tramadol Allergy Intermediate dizziness Verified 02/28/23 09:36 codeine Allergy Mild shaking Verified 02/28/23 09:36 metformin AdvReac Mild nausea Verified 02/28/23 09:36 [facility] PFSH Medical History Anemia ?D64.9 - Anemia, unspecified (ICD-10) Anxiety ?F41.9 - Anxiety disorder, unspecified (ICD-10) Aortic valve stenosis ?I35.0 - Nonrheumatic aortic (valve) stenosis (ICD-10) Ascending aorta dilatation ?I77.810 - Thoracic aortic ectasia (ICD-10) Bilateral dry eyes ?H04.123 - Dry eye syndrome of bilateral lacrimal glands (ICD-10) Cardiac defibrillator in situ ?Z95.810 - Presence of automatic (implantable) cardiac defibrillator (ICD-10) Carotid artery bruit ?R09.89 - Other specified symptoms and signs involving the circulatory and respiratory systems (ICD-10) Chronic low back pain ?M54.50 - Low back pain, unspecified (ICD-10) ?G89.29 - Other chronic pain (ICD-10) Colon, diverticulosis ?K57.30 - Diverticulosis of large intestine without perforation or abscess without bleeding (ICD-10) 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) GERD (gastroesophageal reflux disease) ?K21.9 - Gastro-esophageal reflux disease without esophagitis (ICD-10) Heart murmur ?R01.1 - Cardiac murmur, unspecified (ICD-10) Hiatal hernia ?K44.9 - Diaphragmatic hernia without obstruction or gangrene (ICD-10) Humerus shaft fracture ?S42.309A - Unspecified fracture of shaft of humerus, unspecified arm, initial encounter for closed fracture (ICD-10) Hyperlipidemia ?E78.5 - Hyperlipidemia, unspecified (ICD-10) Hyperparathyroidism ?E21.3 - Hyperparathyroidism, unspecified (ICD-10) Hypertension ?I10 - Essential (primary) hypertension (ICD-10) Intracranial meningioma ?D32.0 - Benign neoplasm of cerebral meninges (ICD-10) Lumbar degenerative disc disease ?M51.36 - Other intervertebral disc degeneration, lumbar region (ICD-10) Lumbar facet arthropathy ?M47.816 - Spondylosis without myelopathy or radiculopathy, lumbar region (ICD-10) Mitral valve insufficiency ?I34.0 - Nonrheumatic mitral (valve) insufficiency (ICD-10) Mixed incontinence urge and stress ?N39.46 - Mixed incontinence (ICD-10) Osteoporosis ?M81.0 - Age-related osteoporosis without current pathological fracture (ICD-10) Primary osteoarthritis, left shoulder ?M19.012 - Primary osteoarthritis, left shoulder (ICD-10) Rib fracture ?S22.39XA - Fracture of one rib, unspecified side, initial encounter for closed fracture (ICD-10) Sensorineural hearing loss of both ears ?H90.3 - Sensorineural hearing loss, bilateral (ICD-10) Small vessel disease ?I73.9 - Peripheral vascular disease, unspecified (ICD-10) Spinal stenosis, lumbar region, without neurogenic claudication ?M48.061 - Spinal stenosis, lumbar region without neurogenic claudication (ICD-10) 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 - Rheumatic tricuspid insufficiency (ICD-10) Type 2 diabetes mellitus ?E11.9 - Type 2 diabetes mellitus without complications (ICD-10) Ventricular tachycardia ?I47.2 - Ventricular tachycardia (ICD-10) Vitamin A deficiency ?E50.9 - Vitamin A deficiency, unspecified (ICD-10) Surgical History History of aortic valve replacement ?Z95.2 - Presence of prosthetic heart valve (ICD-10) History of appendectomy ?Z90.49 - Acquired absence of other specified parts of digestive tract (ICD-10) History of cardiac defibrillator placement ?Z95.810 - Presence of automatic (implantable) cardiac defibrillator (ICD-10) History of carpal tunnel release ?Z98.890 - Other specified postprocedural states (ICD-10) History of cataract surgery ?Z98.49 - Cataract extraction status, unspecified eye (ICD-10) History of cholecystectomy ?Z90.49 - Acquired absence of other specified parts of digestive tract (ICD-10) History of tubal ligation ?Z98.51 - Tubal ligation status (ICD-10) S/P aortic valve replacement with bioprosthetic valve ?Z95.3 - Presence of xenogenic heart valve (ICD-10) S/p reverse total shoulder arthroplasty ?Z96.619 - Presence of unspecified artificial shoulder joint (ICD-10) Social History Smoking Status: Former smoker Do you use any of these nicotine containing products: None How often do you have a drink containing alcohol: never How often do you have six or more drinks on one occasion: Never AUDIT-C Alcohol total score: 0 Non-prescribed substance use: denies use Exam Const: Vital Signs, click to edit/add: Vital Signs - 24 hr 02/28/23 09:33 Temperature 97.4 F L Pulse Rate [Left P ulse Oximeter] 72 Respiratory Rate 18 Blood Pressure [Le ft Upper Arm] 193/75 H Pulse Oximetry 97 Oxygen Delivery Me thod Room Air Documenting provider has reviewed patient's vital signs: yes Common normals: alert General appearance: well kempt Other: Anxious as usual, insight seems limited. Judgment fair. Does not seem to remember the details of our previous ED visit well. HENMT: Mouth: oral and palatal mucosa normal Throat: posterior oropharynx normal Other: Healing bruise on right restorationism, no open laceration. Eye: Common normals: conjunctivae normal General eye: normal appearance of both eyes Conjunctiva: conjunctiva(e) normal Neck & C-Spine: Common normals: full ROM Cervical spine: cervical ROM normal; no cervical spine tenderness Resp: Common normals: normal respiratory effort, no use of accessory muscles and clear to auscultation bilaterally Effort & inspection: able to speak in complete sentences Auscultation: clear to auscultation bilaterally Cardio: Common normals: regular rate, regular rhythm, S1 normal heart sound, S2 normal heart sound and no murmurs Rate: regular rate Rhythm: regular rhythm Heart sounds: S1 normal and S2 normal GI: Common normals: Normal to inspection, nondistended, normoactive bowel sounds present and soft to palpation Palpation: soft Back & Pelvis: Other: Moderate kyphosis noted. Point tender around T6-T8, as expected and reflected in previous imaging. No lumbar tenderness or SI pain. No cervical spine tenderness. Extremity: Other: No effusions to knees, ankles, wrists. Neuro: Sensorium/orientation: alert Speech: speech normal Motor exam: no tremor noted Psych: Appearance: well kempt Other: Anxious with limited insight. Judgment seems fair at best. Skin: Narrative: Bruising stable from previous exam, appropriate interval healing. No new signs of lacerations or injury. Course Vital Signs Vital signs: Initial Vital Signs Temperature 97.4 F L 02/28/23 09:33 Temperature Source Temporal Artery Scan 02/28/23 09:33 Pulse Rate 72 02/28/23 09:33 Pulse Rhythm Regular 02/28/23 09:33 Pulse Strength 3+ Normal 02/28/23 09:33 Respiratory Rate 18 02/28/23 09:33 Blood Pressure 193/75 H 02/28/23 09:33 Blood Pressure Mean 114 H 02/28/23 09:33 Blood Pressure Position Supine 02/28/23 09:33 Pulse Oximetry 97 02/28/23 09:33 Oxygen Delivery Method Room Air 02/28/23 09:33 Vital Signs Temperature 97.4 F L 02/28/23 09:33 Pulse Rate 72 02/28/23 09:33 Respiratory Rate 18 02/28/23 09:33 Blood Pressure 193/75 H 02/28/23 09:33 Pulse Oximetry 97 02/28/23 09:33 Oxygen Delivery Method Room Air 02/28/23 09:33 Temperature 97.4 F L 02/28/23 09:33 Pulse Rate 72 02/28/23 09:33 Respiratory Rate 18 02/28/23 09:33 Blood Pressure 193/75 H 02/28/23 09:33 Pulse Oximetry 97 02/28/23 09:33 Oxygen Delivery Method Room Air 02/28/23 09:33 Medical Decision Making MDM Narrative Medical decision making narrative: No new exam findings that would be suspicious for new trauma or injury. Pain can be explained by known compression fracture at T6. I think that the family's understanding of the healing process and limited ability to care for herself because of this mild compression fracture are the main problem here today. She had initially refused stronger pain medicine citing allergies. She is not allergic to these, she is very anxious and gets appropriate side effects from medications that are well known. She is not anaphylactic lead allergic to these. When I counseled the family regarding this, and encouraged her to give pain medicine a try here in the ED, she is willing. She reiterates that she does not think she can care for herself at home and when I tell her that that means she would need to go to a fdc, she tearfully says that that is what she needs to do. I will order a PT and social sciences research scientist consult though I do think that with appropriate pain medicine she will be able to go home and manage. She does not qualify for an inpatient stay based on the small compression fracture and her overall functional status today, this was discussed with them as well. If she needs to be admitted for observation for subsequent care placement, this is unlikely to be fully covered by insurance. Update: Patient has tolerated the oxycodone and Vistaril very well. She is able to get up with 1 assist and use of a walker. I do observe her working with PT. She has her chronic neuropathy and baseline issues but is actually moving reasonably well. There is no reason the suspect alternate diagnoses than the compression fracture at this time. They are interested in fdc placement for rehab. She does not meet any criteria to come in patient. [facility] is willing to accept patient but is awaiting insurance approval. Family is willing to take her home until they hear back from [facility] as they have been managing for the last week. Based on her overall performance here in the emergency department, I am comfortable with this. All questions are answered. She will be given a small supply of oxycodone to use for pain but will continue the Tylenol primarily. Orders for fdc admission will come from her primary care doctor if they do elect to pursue this. Lab Data Lab results reviewed: Yes I reviewed the patient's lab results (From previous visit) Discharge Plan Discharge Clinical Impression: Closed wedge compression fracture of T6 vertebra, Impaired mobility and ADLs, Requires assistance with activities of daily living (ADL) Patient Disposition: Home w/ Parent or Adult Condition: Stable Instructions: Vertebral Compression Fracture (ED) Additional Instructions: As we discussed, the pain is from a small compression fracture in the back, this is what was known 1 week ago. I am glad that the pain medication you have been given has been helping. You are not allergic to this as you had previously suspected. You may have some side effects from it such as dizziness, memory impairment or fatigue. These are common side effects better not to be confused with allergies. I will give you a small supply of this medication to take up to 3 times daily if the pain is severe. Try to use this medicine as sparingly as possible. If you need further refills, you must make an appointment with your primary care provider to discuss. Remember to keep using your Tylenol Arthritis, 2 tablets 3 times daily. Add in the oxycodone if your pain is severe. Use your walker to get around. As we discussed, this mild fracture does not meet criteria for injection, surgery or kyphoplasty which is a cement injection. It does typically take 8-12 weeks to heal from these mild fractures. Please follow-up with the staff at [facility] regarding a possible admission. As we discussed, you do not meet criteria for inpatient admission to the hospital at this time. Continue using the advice given to you by the physical therapist this afternoon. There are no changes to your other medications. Activity Level: Activity as Tolerated and Use Walker Discharge Diet: Regular Prescriptions: New oxycodone 5 mg tablet 2.5 - 5 mg PO Q8H PRN (Reason: pain) Qty: 12 0RF Rx Instructions: Maximum of 10 mg per 24 hours No Action famotidine 40 mg tablet 40 mg PO Q12H Patient Comments: TAKE 1 TABLET BY MOUTH TWICE A DAY furosemide 40 mg tablet 40 mg PO Q12H Patient Comments: TAKE 1.5 TABLETS (60MG) BY MOUTH 2 TIMES A DAY. gabapentin 300 mg capsule 300 mg PO Q12H Patient Comments: TAKE 1 CAPSULE (300 MG TOTAL) BY MOUTH 2 TIMES A DAY. glipizide 2.5 mg tablet extended release 24hr 2.5 mg PO DAILY Patient Comments: TAKE 1 TABLET BY MOUTH EVERY DAY losartan 50 mg tablet 50 mg PO DAILY Patient Comments: TAKE 1 TABLET BY MOUTH EVERY DAY omeprazole 20 mg capsule,delayed release(DR/EC) 20 mg PO .Q12 Patient Comments: TAKE 1 CAPSULE BY MOUTH 2 TIMES A DAY BEFORE BREAKFAST AND DINNER. spironolactone 25 mg tablet 25 mg PO DAILY Patient Comments: TAKE 1 TABLET BY MOUTH EVERY DAY WITH BREAKFAST omeprazole 20 mg capsule,delayed release(DR/EC) 20 mg PO BID Qty: 60 2RF Rx Instructions: Patient already takes. This is an increase omeprazole magnesium [Acid Automatic Embroidery Machine Tender (omeprazole)] 20 mg capsule,delayed release(DR/EC) 20 mg PO BID Qty: 60 2RF Follow Up/Referrals: Provider,Not a Local [Primary Care Provider] - Stand Alone Forms: [employer] Info Instructions
[2023-02-28] MEDS: hydrOXYzine pamoate 25 MG CAPSULE PO (10:13)
[2023-02-28] MEDS: OXYCODONE 5 MG TABLET PO (10:14)
--- NOTE | 2023-02-28 13:13 | PC.SOCIAL ---
Discharge plan: Met with pt and family in room. is requesting placement at [facility] where dtr works. expects her to be able to be admitted today from the ER to the senior care. Called Anel in admissions at [facility] who requested information be sent. Faxed information and awaiting decision on admit. custodial maintenance worker to follow up as needed.
[2023-02-28 15:10] LABS: PCR FLU A Negative PCR FLU A (Negative); PCR FLU B Negative PCR FLU B (Negative)
[2023-02-28 15:14] LABS: SARS PCR* Negative SARS-CoV-2 (Negative)
--- NOTE | 2023-02-28 15:17 | PC.SOCIAL ---
Discharge plan: Received call back from litigation coordinator, Anel, at [facility] stating they have submitted information to pt's insurance for prior authorization and will expect to have a decision from insurance in 2-3 days. Family plans to take pt home and wait for that decision. If admission to [facility] is covered by insurance, family will work with [facility] and pt's primary care physician for admission to [facility] form home. Completed prison preadmission screen at request of [facility]. Met again with family and answered all questions.
--- NOTE | 2023-02-28 15:21 | ED.NURSE ---
Spoke with Sheet Heater Helper and relayed message that all paperwork for today's visit had been faxed to pt's primary Health Care, Dr. Ken Cabrera at [facility] fax:[phone]
== END 2023-02-28 15:22 | disposition home or self-care (01) ==
PROVIDERS: Emergency Provider Family Medicine
DX: S22.050D Wedge compression fracture of T5-T6 vertebra, subsequent encounter for fracture with routine healing (principal); Z74.09 Other reduced mobility; Z73.6 Limitation of activities due to disability
CPT/HCPCS: 87631; 97162; 97530; 99283; A9270

== ENCOUNTER 2023-04-04 05:38 | Outpatient (CLI) | payer MEDICARE, SELFPAY | END 2023-04-04 05:39 | disposition home or self-care (01) | LOC: AMB 04-08 11:30 | PROVIDERS: Visit Provider Family Medicine | DX: R07.89 Other chest pain (principal) | CPT/HCPCS: A0425; A0427 ==